=== PATIENT | female | born 1990 | race American Indian/Alaskan Native ===

== ENCOUNTER 2019-03-23 14:10 | Emergency (ER) | payer SELFPAY ==
[2019-03-23] MEDS ORDERED: TYLENOL ONE (14:25)
[2019-03-23] MEDS ORDERED: TYLENOL PO ONE (14:25)
--- NOTE | 2019-03-23 14:30 | Emergency Department Report ---
Blank Doc - Documentation Documentation: pt presents with vaginal pain yesterday states she has itching +vaginal thick green discharge +dysuria no N/V LNMP: february 21, 2019 no abd pain +sexually active, states she uses protection no PMHx no allergies to medications hx of chlamydia 4 years ago, received treatment at that time non smoker non drinker no drug use
--- NOTE | 2019-03-23 15:59 | Emergency Department Report ---
<LYLY MORGANJaspreet Long - Last Filed: 03/24/19 03:54> ED Female HPI - General Chief complaint: Urogenital-Female Stated complaint: VAGINAL PAIN Time Seen by Provider: 03/23/19 14:28 - Related Data Previous Rx's Medication Instructions Recorded Last Taken Type Cyclobenzaprine HCl [Flexeril 5 MG 5 mg PO TID PRN #10 tablet 01/20/14 Unknown Rx TAB] Fluconazole [Diflucan TAB] 100 mg PO ONCE #1 tablet 03/23/19 Unknown Rx Allergies Allergy/AdvReac Type Severity Reaction Status Date / Time No Known Allergies Allergy Unverified 01/20/14 17:47 ED Past Medical Hx - Medications Home Medications: Home Medications Medication Instructions Recorded Confirmed Last Taken Type Cyclobenzaprine HCl [Flexeril 5 MG 5 mg PO TID PRN #10 tablet 01/20/14 Unknown Rx TAB] Fluconazole [Diflucan TAB] 100 mg PO ONCE #1 tablet 03/23/19 Unknown Rx ED Disposition Clinical Impression: Vaginal discharge, Exposure to STD Disposition: DC-01 TO HOME OR SELFCARE Is pt being admited?: No Does the pt Need Aspirin: No Condition: Stable Instructions: Sexually Transmitted Diseases (ED), Safe Sex (ED) Additional Instructions: Avoid drinking alcohol while taking antibiotics and for 24 hours after completion. Continue safe sexual intercourse. Follow up with Primary Care Provider or health department. Prescriptions: Fluconazole [Diflucan TAB] 100 mg PO ONCE #1 tablet Referrals: TREVOR ORDONEZLAWN MD JESSICA [Primary Care Provider] - 3-5 Days [facility] [Outside] - 3-5 Days [facility] [Outside] - 3-5 Days Forms: Work/School Release Form(ED) <KRISS JOSE - Last Filed: 03/25/19 11:54> ED Female HPI - General Source: patient Mode of arrival: Ambulatory Limitations: No Limitations - History of Present Illness Initial comments: This is a 28 year-old female who presents to the emergency room with vaginal discharge and vaginal pain for 2 days. Patient also complains of vaginal pruritus and dysuria for one week. Patient states she is sexually activ e for one partner. She thought initially she was experiencing irritation from flavor condoms. Last period was 02/21/2019, A1 one . She denies pelvic pain, back pain, urinary frequency, urgency, or vaginal bleeding. MD Complaint: vaginal discharge, dysuria Onset/Timin -: week(s) Location: labia Radiation: non-radiating Severity: mild Severity scale (0 -10): 4 Quality: burning Consistency: intermittent Improves with: none Worsens with: urination, intercourse Are you Now?: No Last Menstrual Period: 02/21/19 EDC: 11/28/19 Associated Symptoms: vaginal discharge, dysuria. denies: vaginal bleeding, abdominal pain, nausea/vomiting, fever/chills, headaches, loss of appetite, hematuria, rash, seizure, shortness of breath, syncope, weakness - Related Data Sexually active: Yes : 2 Para: 1 A: 1 () ED Review of Systems ROS: Stated complaint: VAGINAL PAIN Other details as noted in HPI Constitutional: denies: chills, fever Respiratory: denies: cough, shortness of breath, wheezing Cardiovascular: denies: chest pain, palpitations Gastrointestinal: denies: abdominal pain, nausea, diarrhea Genitourinary: dysuria, discharge. denies: urgency Musculoskeletal: denies: back pain, joint swelling, arthralgia Skin: denies: rash, lesions Neurological: denies: headache, weakness, paresthesias Psychiatric: denies: anxiety, depression ED Past Medical Hx - Past Medical History Previous Medical History?: No - Surgical History Past Surgical History?: No - Social History Smoking Status: Never Smoker Substance Use Type: None ED Physical Exam - General Limitations: No Limitations General appearance: alert, in no apparent distress - Respiratory Respiratory exam: Present: normal lung sounds bilaterally. Absent: respiratory distress - Cardiovascular Cardiovascular Exam: Present: regular rate, normal rhythm. Absent: systolic murmur, diastolic murmur, rubs, gallop - GI/Abdominal GI/Abdominal exam: Present: soft, normal bowel sounds. Absent: distended, tenderness, guarding, rebound, rigid, organomegaly, mass, pulsatile mass - External exam: Present: normal external exam Speculum exam: Present: erythema, vaginal discharge (malodorous curdy greenish yellow discharge). Absent: cervical discharge, vaginal bleeding, foreign body, tissue, laceration Bi-manual exam: Present: normal bi-manual exam - Back Exam Back exam: Absent: CVA tenderness (R), CVA tenderness (L) - Neurological Exam Neurological exam: Present: alert, oriented X3 - Psychiatric Psychiatric exam: Present: normal affect, normal mood - Skin Skin exam: Present: warm, dry, intact, normal color. Absent: rash ED Course Vital Signs 03/23/19 03/23/19 03/23/19 14:19 14:32 20:22 Temperature 98.8 F 98.8 F 98.6 F Pulse Rate 105 H 84 Respiratory 16 16 Rate Blood Pressure 135/76 136/93 [Left] O2 Sat by Pulse 95 100 Oximetry ED Medical Decision Making - Medical Decision Making This is a 28-year-old -[place] female who presents with vaginal discharge and pruritus for one week. Patient was examined by me. Vitals are stable and in no acute distress. Obtain a urinalysis, wet prep and gonorrhea and chlamydia via Pelvic exam. Wet prep positive for yeast and many poly- mononuclear cells, negative Trichomonas and clue cells. Empirically treated with Rocephin 250 mg IM and azithromycin 1 g by mouth. Patient instructed to follow-up in 3-5 days for pending gonorrhea and chlamydia labs. Chart pending urinalysis was added due to a pending urinalysis and test. Chart signed to SEBASTIÁN Horne. Critical care attestation.: If time is entered above; I have spent that time in minutes in the direct care of this critically ill patient, excluding procedure time. ED Disposition Is pt being admited?: No Does the pt Need Aspirin: No
[2019-03-23] MEDS ORDERED: ZITHROMAX PO ONE (18:55)
[2019-03-23] MEDS ORDERED: XYLOCAINE 1% MPF 5 mL INFILTRATI ONE (18:55)
[2019-03-23] MEDS ORDERED: ROCEPHIN IM ONE (18:55)
[2019-03-23 19:09] LABS: Bilirubin,Urine NEG (Negative); Blood,Urine NEG (Negative); Color,Urine Yellow (Yellow); Mucus,Urine FEW /HPF; Protein,Urine <15 mg/dL mg/dL (Negative); Urobilinogen,Urine < 2.0 mg/dL (<2.0)
[2019-03-23 19:23] LABS: HCG Qualitative,Urine Negative (Negative)
[2019-03-23 20:23] VITALS: BP 136/93
== END 2019-03-23 20:22 | disposition home or self-care (01) ==
LOC: ED 14:10
DX: A64 Unspecified sexually transmitted disease (principal)
CPT/HCPCS: 81001; 81025; 87210; 87591; 96372; 99284; J0696